=== PATIENT | male | born 1955 | race Caucasian/White ===

== ENCOUNTER → 2021-05-04 | Day surgery (SDC) | payer OTHER ==
[~2021-05-04] VITALS: Ht 177.8 cm; Wt 122.6 kg
[~2021-05-04] MED LIST: ASPIRIN325 MG PO; ATORVASTATIN CA20 MG PO; CENTRUM SILVER1 EAC1 PO; CYMBALTA20 M1 PO; FUROSEMIDE20 MG PO; HYDRALAZINE25 MG PO; LASIX20 MG PO; METOPROLOL SUCC25 MG PO; NORVASC5 MG PO; TOPROL XL 25MG25 MG PO
[2021-05-04 09:11] LABS: HCT 48.2 % (42.0-52.0); HGB 15.5 g/dl (13.2-18.0); MCH 30.4 pg (25.0-31.0); MCHC 32.2 g/dL (32.0-36.0); MCV 94.5 fL (78.0-100.0); MPV 9.5 fL (6.0-9.5); RBC 5.1 M/uL (4.70-6.00); RDW 12.4 % (11.5-14.0); WBC 8.6 K/uL (4.0-10.5)
[2021-05-04 09:26] LABS: ALBUMIN 3.6 g/dL (3.4-5.0); BILIRUBIN - TOTAL 0.7 mg/dL (0.2-1.0); BUN/CREAT RATIO (CALC) 12.2 RATIO; CREATININE 1.15 mg/dL (0.67-1.17); GLOBULIN (CALCULATION) 3.4 g/dL; POTASSIUM 4.1 mmol/L (3.5-5.1)
== END | disposition home or self-care (01) ==
LOC: FAS 08:11
PROVIDERS: Surgery
DX: Z12.11 Encounter for screening for malignant neoplasm of colon (principal); D12.0 Benign neoplasm of cecum; E66.9 Obesity, unspecified; Z68.30 Body mass index [BMI] 30.0-30.9, adult; G47.33 Obstructive sleep apnea (adult) (pediatric); M19.90 Unspecified osteoarthritis, unspecified site; I12.9 Hypertensive chronic kidney disease with stage 1 through stage 4 chronic kidney disease, or unspecified chronic kidney disease; N18.2 Chronic kidney disease, stage 2 (mild); F32.9 Major depressive disorder, single episode, unspecified; E78.5 Hyperlipidemia, unspecified; I34.0 Nonrheumatic mitral (valve) insufficiency; Z80.0 Family history of malignant neoplasm of digestive organs
CPT/HCPCS: 36415; 80053; J2250; J7120